=== PATIENT | male | born 1990 | race African-American/Black ===

== ENCOUNTER 2017-04-29 04:08 | Emergency (ER) | payer SELFPAY ==
[~2017-04-29] VITALS: Ht 172.7 cm; Wt 81.0 kg
[2017-04-29 04:14] VITALS: BP 120/75; PULSE 65; RESP 12; TEMP 98.4; O2SAT 99
[2017-04-29 04:24] VITALS: O2SAT 20
[2017-04-29] MEDS ORDERED: LIDOCAINE HCL 1% 50 ML VIAL IM ONE (04:45)
[2017-04-29] MEDS ORDERED: AZITHROMYCIN 250 MG TAB PO ONE (04:45)
[2017-04-29] MEDS ORDERED: cefTRIAXone 250 MG VIAL IM ONE (04:45)
--- NOTE | 2017-04-29 04:52 | PD ---
HPI Chief Complaint: Skin Problem Time Seen by Provider: 04:45 Travel History International Travel<30 days: No Contact w/Intl Traveler<30days: No Traveled to known affect area: No History of Present Illness HPI 26-year-old male presents to the emergency department by private transportation for complaint of urethral discharge and rash in the groin area 2 weeks. Patient states sexual partner has had similar vague symptoms. Patient is sexually active with one partner and does not use condoms. Patient denies prior history of sexually transmitted disease. Patient states rash is worsening and has become very pruritic over the past 2 days no ulcerations no pustules. No painful or painless lesions on the penis. PFSH Past Medical History Narrative Medical Negative past medical history negative surgical history positive tobacco use positive substance use nursing notes reviewed Medical History: Denies Significant Hx Diminished Hearing: No Tetanus Vaccination: Unknown Influenza Vaccination: No Past Surgical History Surgical History: No Previous Surgery Social History Alcohol Use: No Tobacco Use: Yes (4 CIGARETTES) Substance Use: Yes (MARIJUANA) Allergies-Medications (Allergen,Severity, Reaction): Coded Allergies: No Known Allergies (Unverified , 04/29/17) Narrative Medication none Review of Systems Except as stated in HPI: all other systems reviewed are Neg Physical Exam Narrative GENERAL: Well-developed well-nourished male in no acute distress no respiratory distress SKIN: Warm and dry. HEAD: Normocephalic. EYES: No scleral icterus. No injection or drainage. NECK: Supple, trachea midline. No JVD or lymphadenopathy. CARDIOVASCULAR: Regular rate and rhythm without murmurs, gallops, or rubs. RESPIRATORY: Breath sounds equal bilaterally. No accessory muscle use. GASTROINTESTINAL: Abdomen soft, non-tender, nondistended. : Circumcised male bilaterally since testicles positive cremasteric reflex groin area with mild hyperpigmentation and small area of folliculitis without pustules. No vesicles no ulcerations. No genital warts. MUSCULOSKELETAL: No cyanosis, or edema. BACK: Nontender without obvious deformity. No CVA tenderness. Data Data Last Documented VS Vital Signs Date Time Temp Pulse Resp B/P Pulse Ox O2 Delivery O2 Flow Rate FiO2 04/29/17 04:32 20 04/29/17 04:24 20 04/29/17 04:14 98.4 65 120/75 MDM Medical Decision Making Medical Screen Exam Complete: Yes Emergency Medical Condition: Yes Medical Record Reviewed: Yes Differential Diagnosis Rash, folliculitis, contact dermatitis, urethritis, STI Narrative Course Urine specimen collected and sent for PCR for GC and chlamydia; patient treated presumptively with Rocephin 250 mg IM along with oral azithromycin 1 g by mouth : Patient is stable for outpatient management encouraged to be sexually abstinent until testing is finalized and until partner has been treated. Diagnosis Primary Impression: Urethritis Additional Impression: Folliculitis Referrals: [facility] Dept. call for appointment Patient Instructions: General Instructions Additional Instructions: Follow-up with primary care provider/[facility] Department Return to the emergency for for any concerns Remain sexually abstinent until after all testing resulted and partner treated Med/Other Pt SpecificInfo: No Meds Exist/No RX given Disposition: 01 DISCHARGE HOME Condition: Lashell Brasher MD Apr 29, 2017 04:52
[2017-04-29 05:56] VITALS: BP 136/70
[2017-04-29 13:03] LABS: CHLAMYDIA PCR NOT DETECTED (NOT DETECT); NEISSERIA PCR NOT DETECTED (NOT DETECT)
== END 2017-04-29 05:26 | disposition home or self-care (01) ==
LOC: PHED 04:08
DX: N34.2 Other urethritis (principal); L73.9 Follicular disorder, unspecified; F17.210 Nicotine dependence, cigarettes, uncomplicated
CPT/HCPCS: 87491; 87591; 96372; 99284; J0696